=== PATIENT | male | born 1965 | race Caucasian/White ===

== ENCOUNTER 2018-04-06 09:06 | Day surgery (SDC) | payer OTHER ==
[2018-04-05 14:28] VITALS: BMI 27.7
[2018-04-06] MEDS ORDERED: PROPOFOL 20 ML ONE ×3 (10:23)
[2018-04-06 11:05] VITALS: TEMP 97.7
[2018-04-06 12:12] VITALS: BP 110/60; PULSE 62
== END 2018-04-06 12:13 | disposition home or self-care (01) ==
LOC: JASU-ENDO 09:06
PROVIDERS: ATTEND Internal Medicine Gastroenterology
PROC: 0DJD8ZZ Inspection of Lower Intestinal Tract, Via Natural or Artificial Opening Endoscopic (ICD-10-PCS; principal; 2018-04-06 10:30)
DX: Z12.11 Encounter for screening for malignant neoplasm of colon (principal); K64.8 Other hemorrhoids

== ENCOUNTER 2024-04-05 04:13 | Day surgery (SDC) | payer OTHER ==
[2024-04-01 10:37] VITALS: BMI 29.8
[2024-04-05 09:14] VITALS: TEMP 97
[2024-04-05 09:43] VITALS: RESP 18
[2024-04-05 09:44] VITALS: BP 118/72; PULSE 56
== END 2024-04-05 09:45 | disposition home or self-care (01) ==
LOC: JASU-ENDO 04:13
PROVIDERS: ATTEND Internal Medicine Gastroenterology
PROC: 0DBL8ZX Excision of Transverse Colon, Via Natural or Artificial Opening Endoscopic, Diagnostic (ICD-10-PCS; 2024-04-05)
PROC: 0DBK8ZX Excision of Ascending Colon, Via Natural or Artificial Opening Endoscopic, Diagnostic (ICD-10-PCS; principal; 2024-04-05 08:30)
DX: Z12.11 Encounter for screening for malignant neoplasm of colon (principal); D12.2 Benign neoplasm of ascending colon; D12.3 Benign neoplasm of transverse colon; K64.8 Other hemorrhoids
CPT/HCPCS: 88305-TC